=== PATIENT | female | born 1935 | race Caucasian/White ===

== ENCOUNTER 2016-12-25 15:47 | Inpatient (IN) | payer OTHER, MEDICARE, BC ==
[~2016-12-25] VITALS: Ht 165.1 cm; Wt 94.3 kg
[2016-12-25 15:49] VITALS: BP 132/74; PULSE 70; RESP 20; TEMP 97.6; O2SAT 97
[2016-12-25 15:53] VITALS: BP 172/93; PULSE 61; RESP 18; TEMP 98.8; O2SAT 98
[2016-12-25] MEDS ORDERED: LISI10TA3 PO (16:08)
[2016-12-25] MEDS ORDERED: METF500T PO (16:09)
[2016-12-25] MEDS ORDERED: GLIM2TAB PO (16:10)
[2016-12-25] MEDS ORDERED: MORPHINE SULFATE 4 MG/ML INJ IV PUSH ONE (16:15)
[2016-12-25] MEDS ORDERED: ONDANSETRON HCL 4 MG/2 ML VIAL IV PUSH ONE (16:45)
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
[2016-12-25 16:52] LABS: AUTOMATED NEUTROPHIL # 13.3 TH/MM3 (1.8-7.7); BASOPHIL # 0.1 TH/MM3 (0-0.2); BASOPHIL % 0.5 % (0.0-2.0); EOSINOPHIL % 0.2 % (0.0-4.0); HEMATOCRIT 40.9 % (35.0-46.0); HEMO FLAGS DIFF FINAL; LYMPH % 8.2 % (9.0-44.0); LYMPHOCYTE # 1.3 TH/MM3 (1.0-4.8); MEAN CELL VOLUME 89.4 FL (80.0-100.0); MEAN CORPUSCULAR HEMOGLOBIN 28.8 PG (27.0-34.0); MEAN CORPUSCULAR HGB CONC 32.3 % (32.0-36.0); MONO % 4.9 % (0.0-8.0); NEUT % 86.2 % (16.0-70.0); PLATELET COUNT 210 TH/MM3 (150-450); RED BLOOD COUNT 4.58 MIL/MM3 (4.00-5.30); RED CELL DISTRIBUTION WIDTH 14.2 % (11.6-17.2); WHITE BLOOD COUNT 15.4 TH/MM3 (4.0-11.0)
[2016-12-25 17:10] LABS: APTT (PATIENT) 27.4 SEC (24.3-30.1); PROTHROMBIN TIME - PATIENT 10.9 SEC (9.8-11.6)
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
[2016-12-25 17:19] LABS: BICARBONATE 24.2 MEQ/L (21.0-32.0); POTASSIUM 4.1 MEQ/L (3.5-5.1)
[2016-12-25] MEDS ORDERED: IODIXANOL 320 MG/ML 10 ML VIAL (for Rad CT) IV ONE (17:56)
[2016-12-25 18:00] VITALS: BP 156/81; PULSE 74; RESP 18; O2SAT 95
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
[2016-12-25] MEDS ORDERED: DIAZEPAM 2 MG TAB PO ONE (19:00)
--- NOTE | 2016-12-25 20:00 | HHI.HP ---
General Surgery H&P H&P Dictated [id number] Abdominal/chest wall/ left forearm /left thigh and knee contusion will admit and recheck labs in am and cxr [place] Ospina MD Dec 25, 2016 20:00
[2016-12-25] MEDS ORDERED: SODIUM CHLOR 0.9% 1000 ML INJ 1,000 ML IV SCH (20:01)
[2016-12-25] MEDS ORDERED: ACETAMINOPHEN 325 MG TAB PO PRN (20:15)
[2016-12-25] MEDS ORDERED: ONDANSETRON HCL 4 MG/2 ML VIAL IV PRN (20:15)
[2016-12-25] MEDS ORDERED: HYDROmorphone HCL PF 1 MG/ML VIAL IVP PRN (20:15)
[2016-12-25] MEDS ORDERED: SODIUM CHLORIDE 0.9% FLUSH 5 ML FLUSH IVF PRN (20:15)
[2016-12-25] MEDS ORDERED: LORazepam 2 MG/ML VIAL IV PUSH PRN (20:15)
[2016-12-25] MEDS ORDERED: KETOROLAC TROMETHAMINE 30 MG/ML (IVP) VIAL IVP PRN (20:15)
[2016-12-25] MEDS ORDERED: MISCELLANEOUS NURSING INFORMATION XX SCH (20:15)
[2016-12-25] MEDS ORDERED: CHLORHEXIDINE GLUCONATE 2 % 1 PACK (2 CLOTHS) TOP PRN (20:15)
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
[2016-12-25 21:40] VITALS: BP 140/74; PULSE 72; RESP 18; TEMP 98.4; O2SAT 98
[2016-12-25 21:48] VITALS: PULSE 73
[2016-12-26] VITALS: BP 102/51; PULSE 74; RESP 16; TEMP 98.5; O2SAT 96
[2016-12-26] MEDS: ACETAMINOPHEN/HYDROcodone 325 MG/5 MG TAB PO PRN ×2 (02:03→14:31)
[2016-12-26 03:33] VITALS: O2SAT 96
[2016-12-26 04:00] VITALS: BP 115/56; PULSE 69; RESP 18; TEMP 98; O2SAT 97
[2016-12-26] MEDS ORDERED: CHLORHEXIDINE GLUCONATE 2 % 1 PACK (2 CLOTHS) TOP SCH (04:00)
--- NOTE | 2016-12-26 06:07 | RADRPT ---
EXAM DATE/TIME: 12/26/2016 05:31 [facility] COMPARISON: No previous studies available for comparison. INDICATIONS : Shortness of breath, possible pulmonary disease. MEDICAL HISTORY : Hypertension. Diabetes mellitus type II. SURGICAL HISTORY : None. ENCOUNTER: Subsequent ACUITY: 2 days PAIN SCORE: 6/10 LOCATION: Bilateral chest FINDINGS: A single view of the chest demonstrates the lungs to be symmetrically aerated without evidence of mas s, infiltrate or effusion. The cardiomediastinal contours are unremarkable. Osseous structures are intact. CONCLUSION: No acute disease. Hugo Cruz MD on December 26, 2016 at 6:05 Board Certified Radiologist. This report was verified electronically.
[2016-12-26 07:01] LABS: AUTOMATED NEUTROPHIL # 5.8 TH/MM3 (1.8-7.7); BASOPHIL # 0.1 TH/MM3 (0-0.2); BASOPHIL % 0.8 % (0.0-2.0); EOSINOPHIL % 0.3 % (0.0-4.0); HEMATOCRIT 35.8 % (35.0-46.0); HEMO FLAGS DIFF FINAL; LYMPH % 23.5 % (9.0-44.0); MEAN CELL VOLUME 88.6 FL (80.0-100.0); MEAN CORPUSCULAR HEMOGLOBIN 29.3 PG (27.0-34.0); MEAN CORPUSCULAR HGB CONC 33.1 % (32.0-36.0); MONO % 7.1 % (0.0-8.0); NEUT % 68.3 % (16.0-70.0); PLATELET COUNT 168 TH/MM3 (150-450); RED BLOOD COUNT 4.04 MIL/MM3 (4.00-5.30); RED CELL DISTRIBUTION WIDTH 14.3 % (11.6-17.2); WHITE BLOOD COUNT 8.6 TH/MM3 (4.0-11.0)
[2016-12-26 07:03] LABS: ALT (GPT) 20 U/L (10-53); ANION GAP 8 MEQ/L (5-15); AST (GOT) 21 U/L (15-37); BICARBONATE 22.8 MEQ/L (21.0-32.0); BLOOD UREA NITROGEN 26 MG/DL (7-18); CHLORIDE 108 MEQ/L (98-107); GLOMERULAR FILTRATION RATE 45 ML/MIN (>89); POTASSIUM 4.2 MEQ/L (3.5-5.1); SODIUM (NA) 139 MEQ/L (136-145)
[2016-12-26 07:05] LABS: ALKALINE PHOSPHATASE 49 U/L (45-117); TOTAL BILIRUBIN ADULT 0.8 MG/DL (0.2-1.0)
[2016-12-26 08:00] VITALS: BP 152/65; PULSE 68; RESP 20; TEMP 98.2; O2SAT 95
[2016-12-26] MEDS ORDERED: GLIMEPIRIDE 2 MG TAB PO SCH (08:00)
[2016-12-26] MEDS ORDERED: DEXTROSE 50% IN WATER 50 ML VIAL(D50) IV PUSH PRN (08:00)
[2016-12-26] MEDS ORDERED: GLUCAGON 1 MG/ML VIAL OTHER PRN (08:00)
[2016-12-26] MEDS ORDERED: DOCUSATE SODIUM 50 MG/SENNA 8.6 MG TAB PO SCH (09:00)
[2016-12-26] MEDS ORDERED: LISINOPRIL 10 MG TAB PO SCH (09:00)
[2016-12-26] MEDS ORDERED: INSULIN NovoLIN REGULAR SUPPLEMENTAL SCALE SQ SCH (11:00)
[2016-12-26 12:00] VITALS: BP 107/58; PULSE 63; RESP 20; TEMP 98.2; O2SAT 92
--- NOTE | 2016-12-26 12:26 | EKG ---
Date Performed: 12/25/2016 Time Performed: 16:46:28 PTAGE: 81 years EKG: Sinus rhythm WITH OCCASIONAL VENTRICULAR PREMATURE COMPLEXES BORDERLINE LEFT AXIS DEVIATION BORDERLINE ECG NO PREVIOUS TRACING DOCTOR: Markie Aponte Interpretating Date/Time 12/26/2016 12:24:54
[2016-12-26] MEDS ORDERED: PERC5TAB12 PO (12:27)
[2016-12-26] MEDS ORDERED: MILKSUS PO (12:46)
[2016-12-26] MEDS ORDERED: SENN1TAB PO (12:46)
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
[2016-12-26 13:11] VITALS: PULSE 73
[2016-12-26] MEDS ORDERED: MAGNESIUM HYDROXIDE SUSP 30 ML CUP PO SCH (21:00)
[2016-12-26] MEDS ORDERED: FAMOTIDINE 20 MG TAB PO SCH (21:00)
[2016-12-28] MEDS ORDERED: metFORMIN HCL 500 MG TAB PO SCH (09:00)
== END 2016-12-26 14:51 | disposition home or self-care (01) | DRG 605 ==
LOC: NEPC 15:47 → NEDA 18:52 → OBSVTOIN 20:10 → N04A 21:20
PROVIDERS: ADMIT Surgery; ATTEND Surgery
DX: S20.219A Contusion of unspecified front wall of thorax, initial encounter (principal); E11.9 Type 2 diabetes mellitus without complications; I10 Essential (primary) hypertension; S30.1XXA Contusion of abdominal wall, initial encounter; S70.12XA Contusion of left thigh, initial encounter; S80.02XA Contusion of left knee, initial encounter; S50.12XA Contusion of left forearm, initial encounter; E78.5 Hyperlipidemia, unspecified; V43.52XA Car driver injured in collision with other type car in traffic accident, initial encounter; Z79.84 Long term (current) use of oral hypoglycemic drugs
CPT/HCPCS: 71010; 71260; 73552; 74177; 80048; 80053; 82948; 85025; 85610; 85730; 93005; 94002; 94150; 96374; 96375; J1885; J2270; J2405; J7030; Q9967